=== PATIENT | female | born 1965 | race Caucasian/White ===

== ENCOUNTER 2024-10-26 11:15 | Observation (INO) | payer OTHER ==
[2024-10-25 10:55] LABS: BASOPHILS % 0.5 % (0.0-1.0); EOSINOPHILS # (AUTO) 0.2 (0.0-0.4); EOSINOPHILS % 2.8 % (0.0-6.0); HEMATOCRIT 38.7 % (34.2-44.1); HEMOGLOBIN 11.7 g/dL (12.0-16.0); LYMPHOCYTES # (AUTO) 1.3 (1.0-3.2); LYMPHOCYTES % 20.9 % (18.0-39.1); MEAN CORPUSCULAR HEMOGLOBIN 28.1 pg (28-32); MEAN CORPUSCULAR HGB CONC 30.2 g/dL (31-35); MONOCYTES # (AUTO) 0.4 (0.2-0.8); MONOCYTES % 6.8 % (4.4-11.3); NEUTROPHILS # (AUTO) 4.3 (2.1-6.9); NEUTROPHILS % 68.7 % (38.7-80.0); PLATELET COUNT 230 x10e3/uL (140-360); RED BLOOD COUNT 4.16 x10e6/uL (3.6-5.1); RED CELL DISTRIBUTION WIDTH 13.3 % (11.7-14.4); WHITE BLOOD COUNT 6.18 x10e3/uL (4.8-10.8)
[2024-10-25 11:17] LABS: INR 0.92; PARTIAL THROMBOPLASTIN TIME 24.2 seconds (23.8-35.5); PROTHROMBIN TIME 12.9 seconds (11.9-14.5)
[2024-10-25 11:24] LABS: ALBUMIN 3.7 g/dL (3.5-5.0); ALBUMIN/GLOBULIN RATIO 1.2 (0.8-2.0); ANION GAP 14.9 mmol/L (8-16); BILIRUBIN,TOTAL 0.3 mg/dL (0.2-1.2); CALCIUM 9.2 mg/dL (8.4-10.2); CREATININE, SERUM 1.05 mg/dL (0.57-1.11); POTASSIUM 3.9 mmol/L (3.5-5.1); TOTAL PROTEIN 6.8 g/dL (6.5-8.1)
[~2024-10-26] VITALS: Ht 160 cm; Wt 98.0 kg
[~2024-10-26 11:15] MED LIST: ETODOLAC400 MG PO; LEXAPRO10 MG PO; LYRICA75 MG PO; PRAVASTATIN SOD20 MG PO; TRANEXAMIC ACID 1,000 MG in SODIUM CHLORIDE 0.9% 100 ML IV PRN
[2024-10-26] MEDS ORDERED: METHOCARBAMOL 500 MG TAB ONE (11:55)
[2024-10-26] MEDS: LACTATED RINGER'S 1,000 ML ONE (12:08)
[2024-10-26] MEDS: CELECOXIB 200 MG CAP ONE (12:09)
[2024-10-26] MEDS: ACETAMINOPHEN 325 MG TAB ONE (12:09)
[2024-10-26] MEDS: CLINDAMYCIN PHOS 900MG/ 50ML 50 ML IV ONE (12:58)
[2024-10-26] MEDS: CEFAZOLIN SODIUM 0 GM ONE (12:58)
[2024-10-26] MEDS ORDERED: FENTANYL CITRATE/PF 100MCG/2 ML INJ ONE ×2 (14:14→15:59)
[2024-10-26] MEDS ORDERED: PROPOFOL IV EMULSION 10 MG/ML 20 ML VIAL ONE (14:14)
[2024-10-26] MEDS ORDERED: ACETAMINOPHEN 1000 MG/100 ML 100 ML IV ONE (14:50)
[2024-10-26] MEDS ORDERED: NEOSTIGMINE 1 MG/ML 10ML VIAL ONE (16:13)
[2024-10-26] MEDS ORDERED: GLYCOPYRROLATE INJ 0.2 MG/ML VIAL ONE (16:13)
[2024-10-26] MEDS: HYDROCODONE/APAP 7.5MG-325MG 1 EA TAB PO ONE (17:25)
[2024-10-26] MEDS: HYDROCODONE/APAP 7.5MG-325MG 1 EA TAB ONE (18:43)
[2024-10-26 18:44] VITALS: BP 131/69; PULSE 86; RESP 18; TEMP 98.5; O2SAT 99
[2024-10-26 19:45] VITALS: BP 153/85; PULSE 66; RESP 20; TEMP 97.3; O2SAT 99
[2024-10-26 20:20] VITALS: BP 131/69; PULSE 86; RESP 18; TEMP 98.5; O2SAT 99
[2024-10-26 20:40] VITALS: PULSE 86; RESP 18; O2SAT 99
[2024-10-26] MEDS: KETOROLAC TROMETHAMINE 30 MG/ML VIAL IV PRN (20:40)
[2024-10-26] MEDS: CLINDAMYCIN PHOS 900MG/ 50ML 50 ML IV SCH (23:24)
[2024-10-26] MEDS: ASPIRIN 81 MG CHEW TAB PO SCH (23:24)
[2024-10-27] VITALS (10 sets, daily range): BP systolic 120–147; BP diastolic 56–73; PULSE 70–97; RESP 18–20; TEMP 97.7–98.7; O2SAT 95–98
[2024-10-27] MEDS ORDERED: DOCUSATE SODIUM 100 MG CAP PO PRN
[2024-10-27] MEDS ORDERED: POTASSIUM CHLORIDE 20 MEQ TAB CR PO PRN
[2024-10-27] MEDS ORDERED: LIDOCAINE 4% PATCH TP PRN
[2024-10-27] MEDS ORDERED: ALBUTEROL/IPRATROPIUM 3 ML NEB NEB PRN
[2024-10-27] MEDS ORDERED: DEXTROSE 50% SYRINGE 50 ML IV PRN
[2024-10-27] MEDS ORDERED: SIMETHICONE 80 MG CHEW PO PRN
[2024-10-27] MEDS ORDERED: DIPHENHYDRAMINE HCL 25 MG CAP PO PRN
[2024-10-27] MEDS ORDERED: HYDRALAZINE HCL 20 MG/ML VIAL IV PRN
[2024-10-27] MEDS ORDERED: ONDANSETRON HCL INJ 2MG/ML 2ML 2 MG/ML VIAL IV PRN
[2024-10-27] MEDS ORDERED: BENZONATATE 100 MG CAP PO PRN
[2024-10-27] MEDS ORDERED: MELATONIN 5 MG TABLET PO PRN
[2024-10-27 06:28] LABS: BASOPHILS % 0.2 % (0.0-1.0); HEMATOCRIT 31.2 % (34.2-44.1); HEMOGLOBIN 10.3 g/dL (12.0-16.0); LYMPHOCYTES # (AUTO) 0.7 (1.0-3.2); LYMPHOCYTES % 5.9 % (18.0-39.1); MEAN CORPUSCULAR HEMOGLOBIN 27.8 pg (28-32); MEAN CORPUSCULAR VOLUME 84.3 fL (81-99); MONOCYTES # (AUTO) 0.4 (0.2-0.8); MONOCYTES % 3.3 % (4.4-11.3); NEUTROPHILS # (AUTO) 10.7 (2.1-6.9); NEUTROPHILS % 90.1 % (38.7-80.0); PLATELET COUNT 238 x10e3/uL (140-360); RED CELL DISTRIBUTION WIDTH 13.1 % (11.7-14.4); WHITE BLOOD COUNT 11.87 x10e3/uL (4.8-10.8)
[2024-10-27 07:18] LABS: ALBUMIN 3.3 g/dL (3.5-5.0); ALBUMIN/GLOBULIN RATIO 1.2 (0.8-2.0); ANION GAP 15.7 mmol/L (8-16); BILIRUBIN,TOTAL 0.5 mg/dL (0.2-1.2); CALCIUM 8.5 mg/dL (8.4-10.2); CREATININE, SERUM 1.08 mg/dL (0.57-1.11); POTASSIUM 4.7 mmol/L (3.5-5.1)
[2024-10-27] MEDS: DOCUSATE SODIUM 100 MG CAP PO SCH (09:41)
[2024-10-27] MEDS: PREGABALIN 75 MG CAP PO SCH (09:42)
[2024-10-27] MEDS: PANTOPRAZOLE SOD 40 MG TABEC PO SCH (09:42)
[2024-10-27] MEDS: ESCITALOPRAM OXALATE 10 MG TAB PO SCH (09:42)
[2024-10-27] MEDS: ACETAMINOPHEN 325 MG TAB PO PRN (12:13)
[2024-10-27] MEDS ORDERED: ONDANSETRON HCL 4 MG ORAL DISINTEGRATING TAB PO PRN (15:15)
[2024-10-27 15:48] LABS: ANION GAP 16.9 mmol/L (8-16); CALCIUM 8.8 mg/dL (8.4-10.2); CREATININE, SERUM 1.34 mg/dL (0.57-1.11); POTASSIUM 4.9 mmol/L (3.5-5.1)
[2024-10-27] MEDS: ENOXAPARIN SOD INJ 40 MG/0.4 ML SYR SC SCH (17:11)
[2024-10-27] MEDS: HYDROCODONE/APAP 7.5MG-325MG 1 EA TAB PO PRN (19:41)
[2024-10-27 22:10] LABS: ANION GAP 15.7 mmol/L (8-16); CALCIUM 8.4 mg/dL (8.4-10.2); CREATININE, SERUM 1.29 mg/dL (0.57-1.11); POTASSIUM 4.7 mmol/L (3.5-5.1)
[2024-10-28 03:33] VITALS: BP 134/59; PULSE 97; RESP 18; TEMP 97.9; O2SAT 97
[2024-10-28 07:23] VITALS: PULSE 85; RESP 20; O2SAT 98
[2024-10-28 07:59] VITALS: BP 118/64; PULSE 90; RESP 20; TEMP 97.8; O2SAT 97
[2024-10-28] MEDS: SODIUM CHLORIDE 0.9% 1000ML 1,000 ML IV SCH (12:14)
[2024-10-28 16:55] VITALS: BP 126/63; PULSE 78; RESP 20; TEMP 98.1; O2SAT 98
[2024-10-28 19:31] VITALS: BP 124/50; PULSE 82; RESP 18; TEMP 98.7; O2SAT 100
== END 2024-10-28 21:21 | disposition home health service (06) ==
LOC: OR 11:15 → PACU V 14:19 → MED/SURG2 18:11
PROVIDERS: ADMIT Orthopaedic Surgery; ATTEND Orthopaedic Surgery
DX: M17.11 Unilateral primary osteoarthritis, right knee (principal); E87.1 Hypo-osmolality and hyponatremia; E11.9 Type 2 diabetes mellitus without complications; G47.33 Obstructive sleep apnea (adult) (pediatric); I49.9 Cardiac arrhythmia, unspecified; E78.5 Hyperlipidemia, unspecified; E66.01 Morbid (severe) obesity due to excess calories; M79.7 Fibromyalgia; F32.A Depression, unspecified; F41.9 Anxiety disorder, unspecified; Z88.0 Allergy status to penicillin; Z88.2 Allergy status to sulfonamides; Z01.810 Encounter for preprocedural cardiovascular examination; Z01.812 Encounter for preprocedural laboratory examination; Z79.1 Long term (current) use of non-steroidal anti-inflammatories (NSAID); Z79.899 Other long term (current) drug therapy; Z68.38 Body mass index [BMI] 38.0-38.9, adult
CPT/HCPCS: 36415; 80048; 80053; 82948; 84295; 85025; 85610; 85730; 86850; 86900; 93005; 94660; 94799; C1776; G0378; J1650; J1885; J2710; J7030